=== PATIENT | female | born 1940 | race Caucasian/White ===

== ENCOUNTER → 2016-08-31 | Day surgery (SDC) | payer MEDICARE ==
[~2016-08-31] MED LIST: ASPI81CH CHEW; ASPI81TA82 PO; BIOT10004 PO; BIOT1SUB PO; CEPH-460 PO; COZA50TA PO; ENOX40P SQ; HYDR12.56 PO; LACTATED RINGER'S 1000 ML INJ 1,000 ML ONE; LIDOCAINE 1%/EPINEPHrine 1:100,000 SOLN 20 ML VIAL ONE; LIDOCAINE 1%/EPINEPHrine 1:100,000 SOLN 50 ML VIAL ONE; LOSA50TA PO; ONDANSETRON HCL 4 MG/2 ML VIAL IV PUSH ONE; OXYC1TAB63 PO; OXYC20 PO; PROPOFOL 100 MG/10 ML INJ IV ONE; ZOFR4TAB PO; ceFAZolin 2 GM PREMIX 50 ML ONE
--- NOTE | 2016-09-01 16:24 | MP ---
cc: BUD MONK M.D. DATE OF SURGERY: 08/31/2016 PREOPERATIVE DIAGNOSIS Right breast TRAM flap reconstruction, flap volume too large and displaced low. POSTOPERATIVE DIAGNOSIS Right breast TRAM flap reconstruction, flap volume too large and displaced low. OPERATION Right breast TRAM flap reshaping and repositioning for breast reconstruction. SURGEON Dr. Monk. ANESTHESIA General INDICATIONS A 76-year-old white female with right side breast mastectomy for cancer and a uni or bipedicle TRAM flap reconstruction by Dr. Jenkins, approximately 15 plus years ago. She currently is having difficulty with the flap. The flap is approximately 150 to 200 cc larger than the left side and also displaced low compared to the left side inframammary fold. The patient wishes to reduce the size of the flap and also to reposition it to match the normal left side. The patient was explained the techniques of the procedure including debulking the volume with liposuction technique, de-epithelializing the skin paddles with the need to be shortened and repositioning the inframammary fold and protecting the muscle based blood supply to the flap. The patient understands the possibility of bleeding, infection, possible necrosis of the flap itself and possible need for future surgeries. She is willing to go ahead with the procedure. The patient was brought to the operating room was given supine position. Anesthesia was started. Prep and drape was done, time-out was called and completed. The patient had been placed in a semi-sitting position for marking the right side, checking the sternal notch to the nipple distance, the clavicle to the nipple distance and the nipple to the inframammary fold distance and midline to the nipple distance on both sides, and then outlining the overall areas of volume access. Altogether the flap needs to be debulked more on the lateral aspect, somewhat on the upper pole and partially through the body of the flap itself. Lidocaine 1% with epi and saline dilute tumescent solution was used. The skin markings were de-epithelialized in approximately three-quarters of an inch strip on the upper surgical scar and approximately 1-1/4 inch widest tapering into the medial and lateral aspect on the lower pole of the flap itself. The afognak skin flap was preserved. Once the de-epithelialized portion was complete, the flap was tumesced with lidocaine with epi and saline solution in select areas and liposuction was carried out with low power liposuction prevent much flap damage. The total volume of fat removed was approximately 125 cc, plus/minus 10 cc. The overall volume of the remaining flap appeared to match well with the left side considering the presence of some tumescent fluid still left behind. The total volume of fluid was 155 cc. The lower de-epithelized portion of the skin was incised through the dermis on the lower border and the flap was approached directly, it was gently lifted off the lower skin and of the chest wall from lateral to medial watching for the muscle pedicle. The muscle pedicle was identified and preserved. It is atrophic significantly but it is still visible and identifiable. A new inframammary fold position was outlined with marking pen and taking a three-point sutures including some periosteum on the ribcage the de-epithelialized portion of the flap lower border and the patient's own skin was tacked into the new position, creating a sharp inframammary fold from medial to lateral aspect. The upper de-epithelialized skin was sutured upon itself to shorten the vertical upper pole distance. It is not necessary to adjust the medial distance from the sternal midline only a slight oblique suturing of the upper and lower de-epithelialized pedicle was adequate to shift the nipple to a desired position. The final liposuction was completed with the new breast mound and all the areas were cleaned, dried and sterile dressing was applied. signed, not fully reviewed The skin had been closed with subcuticular running Prolene sutures. The patient remained stable. Intraoperative blood loss less than 5-10 cc. No complications. MD YEIMI Cat/ISAAC /4:45 PM /3:55 PM TIFFANIE
== END | disposition home or self-care (01) ==
LOC: ESDC 08:37
PROVIDERS: ATTEND Plastic Surgery
DX: Z42.1 Encounter for breast reconstruction following mastectomy (principal); Z85.3 Personal history of malignant neoplasm of breast; Z90.11 Acquired absence of right breast and nipple
CPT/HCPCS: 00402; 19380; J0690; J2405; J3010; J7120

== ENCOUNTER 2016-09-13 18:10 | Emergency (ER) | payer MEDICARE ==
[~2016-09-13] VITALS: Ht 167.6 cm; Wt 99.0 kg
[~2016-09-13 18:10] MED LIST changes: -ASPI81CH CHEW; -BIOT1SUB PO; -CEPH-460 PO; -LACTATED RINGER'S 1000 ML INJ 1,000 ML ONE; -LIDOCAINE 1%/EPINEPHrine 1:100,000 SOLN 20 ML VIAL ONE; -LIDOCAINE 1%/EPINEPHrine 1:100,000 SOLN 50 ML VIAL ONE; -LOSA50TA PO; -ONDANSETRON HCL 4 MG/2 ML VIAL IV PUSH ONE; -OXYC1TAB63 PO; -PROPOFOL 100 MG/10 ML INJ IV ONE; -ZOFR4TAB PO; -ceFAZolin 2 GM PREMIX 50 ML ONE
[2016-09-13 18:16] VITALS: BP 144/74; PULSE 80; RESP 18; TEMP 100.1; O2SAT 94
[2016-09-13] MEDS ORDERED: SODIUM CHLORIDE 0.9% FLUSH 10 ML FLUSH IV FLUSH PRN (18:30)
[2016-09-13 18:38] VITALS: BP 162/61; PULSE 81; RESP 20; O2SAT 94
[2016-09-13 18:47] VITALS: O2SAT 94
[2016-09-13] MEDS ORDERED: BIOT1SUB PO (18:51)
[2016-09-13] MEDS ORDERED: ASPI81CH CHEW (18:51)
[2016-09-13] MEDS ORDERED: HYDR12.56 PO (18:51)
[2016-09-13] MEDS ORDERED: LOSA50TA PO (18:51)
[2016-09-13 19:19] LABS: AUTOMATED NEUTROPHIL # 11.5 TH/MM3 (1.8-7.7); BASOPHIL # 0.4 TH/MM3 (0-0.2); BASOPHIL % 2.9 % (0.0-2.0); EOSINOPHIL # 0.1 TH/MM3 (0-0.4); EOSINOPHIL % 0.4 % (0.0-4.0); HEMATOCRIT 40.8 % (35.0-46.0); HEMO FLAGS DIFF FINAL; LYMPH % 7.4 % (9.0-44.0); MEAN CELL VOLUME 88.5 FL (80.0-100.0); MEAN CORPUSCULAR HEMOGLOBIN 29.6 PG (27.0-34.0); MEAN CORPUSCULAR HGB CONC 33.4 % (32.0-36.0); MONO % 8.1 % (0.0-8.0); NEUT % 81.2 % (16.0-70.0); PLATELET COUNT 138 TH/MM3 (150-450); RED BLOOD COUNT 4.61 MIL/MM3 (4.00-5.30); RED CELL DISTRIBUTION WIDTH 12.8 % (11.6-17.2); WHITE BLOOD COUNT 14.1 TH/MM3 (4.0-11.0)
[2016-09-13 19:30] VITALS: BP 123/59; PULSE 77; RESP 20; O2SAT 96
[2016-09-13 19:32] LABS: CHLORIDE 103 MEQ/L (98-107); POTASSIUM 3.4 MEQ/L (3.5-5.1); SODIUM (NA) 140 MEQ/L (136-145)
[2016-09-13 19:34] LABS: BLOOD, URINE SMALL (NEG); GLUCOSE,URINE 100 mg/dL (NEG); KETONE, URINE 40 mg/dL (NEG); NITRITE,URINE POS (NEG)
[2016-09-13 19:35] LABS: ANION GAP 10 MEQ/L (5-15); BICARBONATE 27.4 MEQ/L (21.0-32.0); BLOOD UREA NITROGEN 17 MG/DL (7-18)
[2016-09-13 19:38] LABS: ALT (GPT) 39 U/L (10-53); AST (GOT) 30 U/L (15-37); GLOMERULAR FILTRATION RATE 80 ML/MIN (>89)
[2016-09-13 19:38] LABS: BACTERIA, URINE MOD /hpf; RBC, URINE 0-3 /hpf (0-3); SQUAMOUS EPITHELIAL CELL URINE 0-5 /hpf (0-5); URINE COLOR YELLOW (YELLW/STRAW)
[2016-09-13 19:39] LABS: COMMENT (UR) CULTURE INDICATED; CULTURE IF INDICATED CULTURE INDICATED
[2016-09-13 19:40] LABS: TOTAL BILIRUBIN ADULT 1.4 MG/DL (0.2-1.0)
[2016-09-13 19:41] LABS: ALKALINE PHOSPHATASE 102 U/L (45-117)
[2016-09-13] MEDS ORDERED: cefTRIAXone INJ 1,000 MG in SODIUM CHLORIDE 0.9% INJ 100 ML IV ONE (20:30)
[2016-09-13] MEDS ORDERED: IOHEXOL 350 MG/ML 10 ML VIAL (for RAD DIAG) IV ONE (20:33)
--- NOTE | 2016-09-13 20:38 | PD ---
HPI . Right lower quadrant pain Chief Complaint: Abdominal Pain Time Seen by Provider: 18:29 Travel History International Travel<30 days: No Contact w/Intl Traveler<30days: No Traveled to known affect area: No History of Present Illness HPI Patient presents with right lower quadrant pain which started today. She reports vomiting for 2 days prior to the onset of the abdominal pain. She reports decreased appetite. She denies fever. She denies urinary tract symptoms. She denies cough or difficulty breathing. She reports previous hysterectomy. She has not had a cholecystectomy or appendectomy. [id number]: Right lower quadrant DURATION: Less than 12 hours TIMING: Continuous CONTEXT: Started after 2 days of vomiting ASSOCIATED SYMPTOMS: Anorexia PFSH Past Medical History Arthritis: Yes Cancer: Yes (RIGHT BREAST) Cardiovascular Problems: Yes Chemotherapy: No Diminished Hearing: No Endocrine: No Glaucoma: No Genitourinary: No Hepatitis: No Hiatal Hernia: No Hypertension: Yes Immune Disorder: No Implanted Vascular Access Dvce: Yes Musculoskeletal: Yes Neurologic: No Psychiatric: No Reproductive: No Respiratory: No Radiation Therapy: No Thyroid Disease: No Past Surgical History Eye Surgery: Yes (RIGHT CATARACT EXTRACT.) Gynecologic Surgery: Yes (HYSTERECTOMY) Hysterectomy: Yes Joint Replacement: Yes (LEFT KNEE) Oral Surgery: Yes (T&A-CHILDHOOD) Pacemaker: No Thoracic Surgery: Yes (RIGHT MASTECTOMY WITH RECONSTRUCTION) Tonsillectomy: Yes Other Surgery: Yes Social History Alcohol Use: Yes (RARELY) Tobacco Use: No Substance Use: No Allergies-Medications (Allergen,Severity, Reaction): Coded Allergies: No Known Allergies (Verified , 09/13/16) Reported Meds & Prescriptions Reported Meds & Active Scripts Active Reported Hydrochlorothiazide 12.5 Mg Tab 12.5 Mg PO DAILY Losartan (Losartan Potassium) 50 Mg Tab 50 Mg PO BID Biotin 5,000 Mcg Subl 1,000 Mcg PO DAILY Aspirin 81 Mg Chew 81 Mg CHEW DAILY Review of Systems Except as stated in HPI: all other systems reviewed are Neg General / Constitutional: No: Fever, Chills Respiratory: No: Cough, Shortness of Breath Gastrointestinal: Positive: Nausea, Vomiting, Abdominal Pain, Loss of Appetite , No: Diarrhea Genitourinary: No: Urgency, Frequency, Dysuria Physical Exam Narrative GENERAL: Awake and alert and in no acute distress. SKIN: Warm and dry. HEAD: Atraumatic. Normocephalic. EYES: Pupils equal and round. Extraocular movements are intact. ENT: No nasal bleeding or discharge. Mucous membranes pink and moist. NECK: Trachea midline. Neck is supple. CARDIOVASCULAR: Regular rate and rhythm. Heart sounds are normal. RESPIRATORY: No accessory muscle use. Lungs are clear with full air movement throughout. GASTROINTESTINAL: Abdomen soft, non-tender, nondistended. I was not able to elicit any tenderness to palpation. Bowel sounds are present. MUSCULOSKELETAL: No obvious deformities. No edema. NEUROLOGICAL: Awake and alert. No obvious cranial nerve deficits. Motor grossly within normal limits. Normal speech. PSYCHIATRIC: Appropriate mood and affect; insight and judgment normal. Data Data Last Documented VS Vital Signs Date Time Temp Pulse Resp B/P Pulse Ox O2 Delivery O2 Flow Rate FiO2 09/13/16 18:47 94 09/13/16 18:38 81 20 162/61 Room Air 09/13/16 18:16 100.1 Orders Complete Blood Count With Diff (09/13/16 18:29) Comprehensive Metabolic Panel (09/13/16 18:29) Urinalysis - C+S If Indicated (09/13/16 18:29) Iv Access Insert/Monitor (09/13/16 18:29) Ecg Monitoring (09/13/16 18:29) Oximetry (09/13/16 18:29) Sodium Chloride 0.9% Flush (Ns Flush) (09/13/16 18:30) Electrocardiogram (09/13/16 18:29) Ct Abd/Pel W Iv Contrast(Rout) (09/13/16 18:54) Urine Culture (09/13/16 19:08) Ceftriaxone Inj (Rocephin Inj) (09/13/16 20:30) Iohexol 350 Inj (Omnipaque 350 Inj) (09/13/16 20:33) Labs Laboratory Tests Test 09/13/16 09/13/16 19:05 19:08 White Blood Count 14.1 TH/MM3 Red Blood Count 4.61 MIL/MM3 Hemoglobin 13.6 GM/DL Hematocrit 40.8 % Mean Corpuscular Volume 88.5 FL Mean Corpuscular Hemoglobin 29.6 PG Mean Corpuscular Hemoglobin 33.4 % Concent Red Cell Distribution Width 12.8 % Platelet Count 138 TH/MM3 Mean Platelet Volume 10.8 FL Neutrophils (%) (Auto) 81.2 % Lymphocytes (%) (Auto) 7.4 % Monocytes (%) (Auto) 8.1 % Eosinophils (%) (Auto) 0.4 % Basophils (%) (Auto) 2.9 % Neutrophils # (Auto) 11.5 TH/MM3 Lymphocytes # (Auto) 1.0 TH/MM3 Monocytes # (Auto) 1.1 TH/MM3 Eosinophils # (Auto) 0.1 TH/MM3 Basophils # (Auto) 0.4 TH/MM3 CBC Comment DIFF FINAL Differential Comment Sodium Level 140 MEQ/L Potassium Level 3.4 MEQ/L Chloride Level 103 MEQ/L Carbon Dioxide Level 27.4 MEQ/L Anion Gap 10 MEQ/L Blood Urea Nitrogen 17 MG/DL Creatinine 0.71 MG/DL Estimat Glomerular Filtration 80 ML/MIN Rate Random Glucose 110 MG/DL Calcium Level 8.9 MG/DL Total Bilirubin 1.4 MG/DL Aspartate Amino Transf 30 U/L (AST/SGOT) Alanine Aminotransferase 39 U/L (ALT/SGPT) Alkaline Phosphatase 102 U/L Total Protein 6.9 GM/DL Albumin 3.1 GM/DL Urine Color YELLOW Urine Turbidity CLOUDY Urine pH 6.0 Urine Specific [place] 1.026 Urine Protein 100 mg/dL Urine Glucose (UA) 100 mg/dL Urine Ketones 40 mg/dL Urine Occult Blood SMALL Urine Nitrite POS Urine Bilirubin MOD Urine Leukocyte Esterase SMALL Urine RBC 0-3 /hpf Urine WBC 3-5 /hpf Urine Squamous Epithelial 0-5 /hpf Cells Urine Bacteria MOD /hpf Microscopic Urinalysis Comment CULTURE INDICATED MDM Medical Decision Making Medical Screen Exam Complete: Yes Emergency Medical Condition: Yes Interpretation(s) EKG shows a normal sinus rhythm with no ST segment elevation or depression Differential Diagnosis Differential diagnosis of abdominal pain includes but is not limited to gastritis, pancreatitis, hepatitis, gastroenteritis, gallbladder disease, constipation, urinary retention, UTI, peptic ulcer disease, diverticulitis or appendicitis Narrative Course Patient presents for evaluation of right lower quadrant abdominal pain. She has a benign exam. CBC & BMP Diagram 09/13/16 19:05 UA is positive for UTI. Rocephin has been ordered. Last Impressions Abdomen/Pelvis CT 09/13/16 [id number] Signed Impressions: Service Date/Time: Tuesday, September 13, 2016 20:15 - CONCLUSION: Cholelithiasis and findings are characteristic of cholecystitis may be acute and/or chronic. Uzair Bazzi MD Her physical exam is not consistent with acute cholecystitis. Diagnosis Primary Impression: Right lower quadrant abdominal pain Additional Impression: Urinary tract infection Qualified Code: N30.00 - Acute cystitis without hematuria Patient Instructions: Gallstones (DC), General Instructions, Urinary Tract Infection in Women (DC) Additional Instructions: Follow-up with her primary care provider for further evaluation of your gallbladder. Med/Other Pt SpecificInfo: Prescription(s) given Scripts Ondansetron (Zofran)4 Mg Tab4 Mg PO Q6HR PRN (NAUSEA OR VOMITING) #10 TAB Ref 0 Prov:Jaida Guaman MD 09/13/16 Cephalexin (Keflex)500 Mg [id number] Mg PO Q8H #21 CAP Ref 0 Prov:Jaida Guaman MD 09/13/16 Disposition: 01 DISCHARGE HOME Condition: Stable Jaida Guaman MD Sep 13, 2016 20:38
--- NOTE | 2016-09-13 20:46 | RADHPO ---
EXAM DATE/TIME: 09/13/2016 20:15 [facility] COMPARISON: No previous studies available for comparison. INDICATIONS : Upper right abdomen pain. IV CONTRAST: 92 cc Omnipaque 350 (iohexol) IV ORAL CONTRAST: No oral contrast ingested. RADIATION DOSE: 20.85 CTDIvol (mGy) MEDICAL HISTORY : Cardiovascular disease. SURGICAL HISTORY : None. ENCOUNTER: Initial ACUITY: 1 day PAIN SCALE: 4/10 LOCATION: Right Abodmen TECHNIQUE: Volumetric scanning of the abdomen and pelvis was performed. Using automated exposure control and adjustment of the mA and/or kV according to patient size, radiation dose was kept as low as reasonably achievable to obtain optimal diagnostic quality images. FINDINGS: CT Abdomen: The liver, spleen, pancreas, kidneys, adrenals are unremarkable. There is no evidence for any appreciable pathological adenopathy, free fluid, or bowel obstruction. Slight bibasilar atelect asis and/or infiltrate is seen. The gallbladder is distended measuring almost 13 cm in size multiple stones within it, thickening of the gallbladder wall and haziness to surrounding fat planes character istic of cholecystitis may be acute and or chronic. Small hiatal hernia is seen. There is a small 1 c m upper abdominal anterior wall fat hernia without evidence for bowel herniation. CT pelvis: There is no evidence for mass, abscess formation, or any significant adenopathy within the pelvis. CONCLUSION: Cholelithiasis and findings are characteristic of cholecystitis may be acute and/or c hronic. Uzair Bazzi MD on September 13, 2016 at 20:40 Board Certified Radiologist. This report was verified electronically.
[2016-09-13] MEDS ORDERED: ZOFR4TAB PO (21:18)
[2016-09-13] MEDS ORDERED: CEPH-460 PO (21:18)
[2016-09-13 21:58] VITALS: BP_SYST 140; BP_SYST 151; BP_DIAS 63; BP_DIAS 64
--- NOTE | 2016-09-14 10:44 | EKG ---
Date Performed: 09/13/2016 Time Performed: 18:37:52 PTAGE: 76 years EKG: Sinus rhythm with PVC(s). rSr'(V1) - probable normal variant Inferior infarct - age undetermined Abnormal ECG Com pared to prior tracing no significant change PREVIOUS TRACING : 04/21/2012 09.48 DOCTOR: Sandrita Buck Interpretating Date/Time 09/14/2016 10:36:53
== END 2016-09-13 22:03 | disposition home or self-care (01) ==
LOC: PHED 18:10
DX: N30.00 Acute cystitis without hematuria (principal); K80.20 Calculus of gallbladder without cholecystitis without obstruction; M19.90 Unspecified osteoarthritis, unspecified site; I10 Essential (primary) hypertension; R94.31 Abnormal electrocardiogram [ECG] [EKG]; Z79.82 Long term (current) use of aspirin; Z79.899 Other long term (current) drug therapy; Z85.3 Personal history of malignant neoplasm of breast; Z90.710 Acquired absence of both cervix and uterus
CPT/HCPCS: 74177; 80053; 81001; 85025; 87086; 93005; 96365; J0696; Q9967

== ENCOUNTER 2016-09-14 16:27 | Inpatient (IN) | payer MEDICARE ==
[~2016-09-14] VITALS: Ht 167.6 cm; Wt 99.0 kg
[~2016-09-14 16:27] MED LIST changes: +ASPI81CH CHEW; -ASPI81TA82 PO; -BIOT10004 PO; +BIOT1SUB PO; +CEPH-460 PO; -COZA50TA PO; -ENOX40P SQ; +LOSA50TA PO; -OXYC20 PO; +ZOFR4TAB PO
[2016-09-14 16:33] VITALS: BP 144/78; PULSE 89; RESP 16; TEMP 99; O2SAT 92
[2016-09-14] MEDS ORDERED: SODIUM CHLOR 0.9% 1000 ML INJ 1,000 ML IV SCH (17:07)
[2016-09-14] MEDS ORDERED: HYDROmorphone HCL PF 2 MG/ML VIAL IVS ONE (17:15)
[2016-09-14] MEDS ORDERED: SODIUM CHLORIDE 0.9% FLUSH 10 ML FLUSH IV FLUSH PRN ×2 (17:15→18:00)
[2016-09-14] MEDS ORDERED: ONDANSETRON HCL 4 MG/2 ML VIAL IVP ONE (17:15)
--- NOTE | 2016-09-14 17:17 | PD ---
HPI Chief Complaint: Abdominal Pain Time Seen by Provider: 16:51 Travel History International Travel<30 days: No Contact w/Intl Traveler<30days: No Traveled to known affect area: No History of Present Illness HPI This 76-year-old female is complaining of abdominal pain. She says that Tuesday night she had a lot of vomiting. Tuesday morning she started having pain in her abdomen. She points to the right lower quadrant at the site of the pain. Pain has been fairly persistent. She has had a loss of appetite. She has not eaten she says since Tuesday. It is now Tuesday. She was seen in the emergency department yesterday. At that time her temperature 100.1. She had a CT scan of the abdomen done which showed cholelithiasis and question of chronic or acute cholecystitis. Her white count at that time was 14,000. Her bilirubin was 1.4. She was diagnosed with urinary tract infection and released on Keflex. She continues to have quite severe pain which is fairly constant. The pain does not radiate. She has not been able to eat. She has a history of mastectomy 18 years ago and has had reconstructive surgery. She had a slight flap taken from her stomach for that surgery. She has not had intra-abdominal surgery that she is aware of COUNT INCLUDES THE [facility] Past Medical History Arthritis: Yes Cancer: Yes (RIGHT BREAST) Cardiovascular Problems: Yes Chemotherapy: No Diminished Hearing: No Endocrine: No Glaucoma: No Genitourinary: No Hepatitis: No Hiatal Hernia: No Hypertension: Yes Immune Disorder: No Implanted Vascular Access Dvce: Yes Musculoskeletal: Yes Neurologic: No Psychiatric: No Reproductive: No Respiratory: No Radiation Therapy: No Thyroid Disease: No Tetanus Vaccination: < 5 Years Influenza Vaccination: Yes ?: Not Past Surgical History Eye Surgery: Yes (RIGHT CATARACT EXTRACT.) Gynecologic Surgery: Yes (HYSTERECTOMY) Hysterectomy: Yes Joint Replacement: Yes (LEFT KNEE) Oral Surgery: Yes (T&A-CHILDHOOD) Pacemaker: No Thoracic Surgery: Yes (RIGHT MASTECTOMY WITH RECONSTRUCTION) Tonsillectomy: Yes Other Surgery: Yes Social History Alcohol Use: Yes (RARELY) Tobacco Use: No Substance Use: No Allergies-Medications (Allergen,Severity, Reaction): Coded Allergies: No Known Allergies (Verified , 09/14/16) Reported Meds & Prescriptions Reported Meds & Active Scripts Active Zofran (Ondansetron HCl) 4 Mg Tab 4 Mg PO Q6HR PRN Keflex (Cephalexin) 500 Mg Cap 500 Mg PO Q8H Reported Hydrochlorothiazide 12.5 Mg Tab 12.5 Mg PO DAILY Losartan (Losartan Potassium) 50 Mg Tab 50 Mg PO BID Biotin 5,000 Mcg Subl 1,000 Mcg PO DAILY Aspirin 81 Mg Chew 81 Mg CHEW DAILY Review of Systems General / Constitutional: No: Fever, Chills Eyes: No: Diploplia, Blurred Vision HENT: No: Vertigo, Lightheadedness Cardiovascular: No: Chest Pain or Discomfort Respiratory: No: Cough Gastrointestinal: Positive: Nausea, Vomiting, Abdominal Pain, Loss of Appetite Genitourinary: No: Frequency Musculoskeletal: No: Myalgias, Arthralgias Skin: No Rash Neurologic: No: Weakness, Dizziness Endocrine: No: Heat Intolerance, Cold Intolerance Hematologic/Lymphatic: No: Easy Bruising Physical Exam Narrative GENERAL: Well-developed female SKIN: Focused skin assessment warm/dry. HEAD: Atraumatic. Normocephalic. EYES: Pupils equal and round. No scleral icterus. No injection or drainage. ENT: No nasal bleeding or discharge. Mucous membranes pink and moist. NECK: Trachea midline. No JVD. CARDIOVASCULAR: Regular rate and rhythm. No murmur appreciated. RESPIRATORY: No accessory muscle use. Clear to auscultation. Breath sounds equal bilaterally. GASTROINTESTINAL: Abdomen soft, there is right upper quadrant tenderness with local guarding. Hepatic and splenic margins not palpable. MUSCULOSKELETAL: No obvious deformities. No clubbing. No cyanosis. No edema. NEUROLOGICAL: Awake and alert. No obvious cranial nerve deficits. Motor grossly within normal limits. Normal speech. PSYCHIATRIC: Appropriate mood and affect; insight and judgment normal. Data Data Last Documented VS Vital Signs Date Time Temp Pulse Resp B/P Pulse Ox O2 Delivery O2 Flow Rate FiO2 09/14/16 16:33 99.0 89 16 144/78 92 Orders Complete Blood Count With Diff (09/14/16 17:07) Comprehensive Metabolic Panel (09/14/16 17:07) Lipase (09/14/16 17:07) Prothrombin Time / Inr (Pt) (09/14/16 17:07) Act Partial Throm Time (Ptt) (09/14/16 17:07) Urinalysis - C+S If Indicated (09/14/16 17:07) Us Abdomen Gallbladder (09/14/16 ) Iv Access Insert/Monitor (09/14/16 17:07) Ecg Monitoring (09/14/16 17:07) Oximetry (09/14/16 17:07) Hydromorphone Pf Inj (Dilaudid Pf Inj) (09/14/16 17:15) Ondansetron Inj (Zofran Inj) (09/14/16 17:15) Sodium Chlor 0.9% 1000 Ml Inj (Ns 1000 M (09/14/16 17:07) Sodium Chloride 0.9% Flush (Ns Flush) (09/14/16 17:15) Electrocardiogram (09/14/16 17:17) Chest, Single Ap (09/14/16 17:17) Piperacil-Tazo 4.5 Gm Premix (Zosyn 4.5 (09/14/16 17:30) Place In Observation (09/14/16 ) Vital Signs (Adult) Q4H (09/14/16 17:54) Activity Oob Ad Connie (09/14/16 17:54) Intake + Output MEERA.QSHIFT (09/14/16 17:54) Diet Npo (09/14/16 Dinner) Sodium Chlor 0.9% 1000 Ml Inj (Ns 1000 M (09/14/16 17:54) Sodium Chloride 0.9% Flush (Ns Flush) (09/14/16 18:00) Sodium Chloride 0.9% Flush (Ns Flush) (09/14/16 21:00) Ondansetron Inj (Zofran Inj) (09/14/16 18:00) Diphenhydramine (Benadryl) (09/14/16 18:00) Hydromorphone Pf Inj (Dilaudid Pf Inj) (09/14/16 18:00) Admit Order (Ed Use Only) (09/14/16 17:57) Piperacil-Tazo 4.5 Gm Premix (Zosyn 4.5 (09/15/16 00:00) Labs Laboratory Tests Test 09/14/16 09/14/16 17:15 17:20 Urine Color ONOFRE Urine Turbidity CLEAR Urine pH 6.0 Urine Specific [place] GREATER THAN 1.035 Urine Protein 300 OR GREATER mg/dL Urine Glucose (UA) NEG mg/dL Urine Ketones 15 mg/dL Urine Occult Blood TRACE Urine Nitrite NEG Urine Bilirubin NEG Urine Leukocyte Esterase NEG Urine RBC 0-3 /hpf Urine WBC 6-8 /hpf Urine Squamous Epithelial 6-8 /hpf Cells Urine Bacteria FEW /hpf Urine Mucus FEW /lpf Microscopic Urinalysis Comment CULT NOT INDICATED White Blood Count 16.1 TH/MM3 Red Blood Count 4.97 MIL/MM3 Hemoglobin 14.6 GM/DL Hematocrit 44.3 % Mean Corpuscular Volume 89.2 FL Mean Corpuscular Hemoglobin 29.3 PG Mean Corpuscular Hemoglobin 32.8 % Concent Red Cell Distribution Width 13.1 % Platelet Count 132 TH/MM3 Mean Platelet Volume 10.2 FL Neutrophils (%) (Auto) 86.7 % Lymphocytes (%) (Auto) 5.9 % Monocytes (%) (Auto) 6.9 % Eosinophils (%) (Auto) 0.3 % Basophils (%) (Auto) 0.2 % Neutrophils # (Auto) 14.0 TH/MM3 Lymphocytes # (Auto) 1.0 TH/MM3 Monocytes # (Auto) 1.1 TH/MM3 Eosinophils # (Auto) 0.0 TH/MM3 Basophils # (Auto) 0.0 TH/MM3 CBC Comment DIFF FINAL Differential Comment Prothrombin Time 10.9 SEC Prothromb Time International 1.0 RATIO Ratio Activated Partial 30.6 SEC Thromboplast Time Sodium Level 139 MEQ/L Potassium Level 3.2 MEQ/L Chloride Level 102 MEQ/L Carbon Dioxide Level 28.3 MEQ/L Anion Gap 9 MEQ/L Blood Urea Nitrogen 15 MG/DL Creatinine 0.82 MG/DL Estimat Glomerular Filtration 68 ML/MIN Rate Random Glucose 120 MG/DL Calcium Level 9.5 MG/DL Total Bilirubin 1.2 MG/DL Aspartate Amino Transf 26 U/L (AST/SGOT) Alanine Aminotransferase 39 U/L (ALT/SGPT) Alkaline Phosphatase 147 U/L Total Protein 7.5 GM/DL Albumin 3.1 GM/DL Lipase 84 U/L [facility] Medical Decision Making Medical Screen Exam Complete: Yes Emergency Medical Condition: Yes Medical Record Reviewed: Yes Differential Diagnosis Differential includes cholecystitis,: Cholelithiasis, gastroenteritis Narrative Course White count today is 16,000 compared to 14,000. She has persistent right upper quadrant tenderness. Her CT yesterday was suggestive of cholecystitis. Case discussed with Dr. Rodriguez and she will be admitted Diagnosis Primary Impression: Acute calculous cholecystitis Admitting Information Admitting Physician Requests: Admit Alfredo Luna MD Sep 14, 2016 17:17
[2016-09-14] MEDS ORDERED: PIPERACIL-TAZO 4.5 GM PREMIX 100 ML IV ONE (17:30)
[2016-09-14 17:44] LABS: BLOOD, URINE TRACE (NEG); GLUCOSE,URINE NEG (NEG); KETONE, URINE 15 mg/dL (NEG); NITRITE,URINE NEG (NEG)
[2016-09-14 17:44] LABS: CHLORIDE 102 MEQ/L (98-107); POTASSIUM 3.2 MEQ/L (3.5-5.1); SODIUM (NA) 139 MEQ/L (136-145)
[2016-09-14 17:48] LABS: ANION GAP 9 MEQ/L (5-15); BICARBONATE 28.3 MEQ/L (21.0-32.0); BLOOD UREA NITROGEN 15 MG/DL (7-18)
[2016-09-14 17:49] LABS: APTT (PATIENT) 30.6 SEC (24.3-30.1); PROTHROMBIN TIME - PATIENT 10.9 SEC (9.8-11.6)
--- NOTE | 2016-09-14 17:50 | RADHPO ---
EXAM DATE/TIME: 09/14/2016 17:19 [facility] COMPARISON: CT ABDOMEN & PELVIS W CONTRAST, September 13, 2016, 20:15. INDICATIONS : Fever. No chest complaints. MEDICAL HISTORY : None. SURGICAL HISTORY : None. ENCOUNTER: Initial ACUITY: 3 days PAIN SCORE: 0/10 LOCATION: Bilateral chest FINDINGS: The cardiac silhouette is enlarged in transverse diameter. There is subsegmental atelectasis in the both bases. No pleural effusions are identified. Upper lung zones are clear. CONCLUSION: Cardiomegaly. Bibasilar atelectasis left greater than right Bogdan Reyna MD on September 14, 2016 at 17:48 Board Certified Radiologist. This report was verified electronically.
[2016-09-14 17:51] LABS: ALT (GPT) 39 U/L (10-53); AST (GOT) 26 U/L (15-37); GLOMERULAR FILTRATION RATE 68 ML/MIN (>89)
[2016-09-14 17:52] LABS: TOTAL BILIRUBIN ADULT 1.2 MG/DL (0.2-1.0)
[2016-09-14 17:53] LABS: URINE COLOR AMBER (YELLW/STRAW)
[2016-09-14 17:54] LABS: ALKALINE PHOSPHATASE 147 U/L (45-117)
[2016-09-14] MEDS: SODIUM CHLOR 0.9% 1000 ML INJ 1,000 ML IV SCH (17:54)
[2016-09-14 17:56] LABS: MUCUS URINE FEW /lpf (OCC); RBC, URINE 0-3 /hpf (0-3)
[2016-09-14 17:57] LABS: BACTERIA, URINE FEW /hpf; COMMENT (UR) CULT NOT INDICATED; CULTURE IF INDICATED CULT NOT INDICATED
[2016-09-14] MEDS ORDERED: ONDANSETRON HCL 4 MG/2 ML VIAL IV PRN (18:00)
[2016-09-14] MEDS ORDERED: diphenhydrAMINE HCL 25 MG CAP PO PRN (18:00)
--- NOTE | 2016-09-14 18:12 | RADHPO ---
EXAM DATE/TIME: 09/14/2016 17:49 [facility] COMPARISON: No previous studies available for comparison. INDICATIONS : Right upper quadrant pain. MEDICAL HISTORY : Hypertension. Arthritis. Right breast cancer. SURGICAL HISTORY : Tonsillectomy. Mastectomy, right. Total knee replacement, left. Right breast reconstruction. ENCOUNTER: Initial ACUITY: 3 days PAIN SCORE: 5/10 LOCATION: Right upper quadrant MEASUREMENTS: LIVER: 14.2 cm length COMMON DUCT: 6 mm RIGHT KIDNEY: 11.0 x 4.4 x 5.4 cm FINDINGS: LIVER: Normal echotexture without focal lesion or ductal dilatation. Hepatopedal flow is seen in the portal vein. COMMON DUCT: No intraluminal mass or stone visualized. GALLBLADDER: There are multiple echogenic and shadowing stones which measure up to 2.5 cm in the region of the nec k and an aggregate of echogenic stones in the fundus measuring up to 5.8 cm. No gallbladder wall thi ckening. No pericholecystic fluid. Negative sonographic Cabrera's sign. PANCREAS: Not well seen RIGHT KIDNEY: No evidence of hydronephrosis, stone, or mass. CONCLUSION: Multiple shadowing gallstones with normal dimension common hepatic duct. Kenneth Oglesby MD on September 14, 2016 at 18:09 Board Certified Radiologist. This report was verified electronically.
[2016-09-14 18:14] LABS: BASOPHIL % 0.2 % (0.0-2.0); EOSINOPHIL % 0.3 % (0.0-4.0); HEMATOCRIT 44.3 % (35.0-46.0); LYMPH % 5.9 % (9.0-44.0); MEAN CELL VOLUME 89.2 FL (80.0-100.0); MEAN CORPUSCULAR HEMOGLOBIN 29.3 PG (27.0-34.0); MEAN CORPUSCULAR HGB CONC 32.8 % (32.0-36.0); MONO % 6.9 % (0.0-8.0); NEUT % 86.7 % (16.0-70.0); PLATELET COUNT 132 TH/MM3 (150-450); RED BLOOD COUNT 4.97 MIL/MM3 (4.00-5.30); RED CELL DISTRIBUTION WIDTH 13.1 % (11.6-17.2); WHITE BLOOD COUNT 16.1 TH/MM3 (4.0-11.0)
[2016-09-14 18:15] VITALS: BP 158/72; PULSE 74; RESP 18; O2SAT 94
[2016-09-14 18:16] VITALS: RESP 18; O2SAT 94
[2016-09-14 18:20] LABS: HEMO FLAGS DIFF FINAL
[2016-09-14] MEDS: HYDROmorphone HCL PF 1 MG/ML VIAL IV PUSH PRN ×2 (20:16→22:28)
[2016-09-14] MEDS: SODIUM CHLORIDE 0.9% FLUSH 10 ML FLUSH IV FLUSH SCH (20:16)
[2016-09-14 20:21] VITALS: BP 138/62; PULSE 60; RESP 18; TEMP 98.8; O2SAT 97
[2016-09-14] MEDS: PIPERACIL-TAZO 4.5 GM PREMIX 100 ML IV SCH (23:46)
[2016-09-15 00:12] VITALS: BP 129/61; PULSE 75; RESP 18; TEMP 99.4; O2SAT 93
[2016-09-15] MEDS: HYDROmorphone HCL PF 1 MG/ML VIAL IV PUSH PRN ×3 (04:17→09:38)
[2016-09-15] MEDS: SODIUM CHLOR 0.9% 1000 ML INJ 1,000 ML IV SCH ×3 (04:17→16:30)
[2016-09-15] MEDS: PIPERACIL-TAZO 4.5 GM PREMIX 100 ML IV SCH ×4 (04:18→23:49)
[2016-09-15 08:00] VITALS: BP 132/63; PULSE 75; RESP 17; TEMP 98.8; O2SAT 91
--- NOTE | 2016-09-15 08:42 | HHI.HP ---
[facility] Service General Surgery Primary Care Physician Andrés Mercado MD Admission Diagnosis ACUTE CHOLECYSTITIS Chief Complaint: Abdominal pain History of Present Illness This is a 76-year-old female who began to have abdominal pain suddenly on Tuesday associated with multiple episodes of emesis. It was primarily right sided. She had a small meal on Tuesday night. She denies nausea or diarrhea currently after the emesis resolved. She presented to the emergency department on Tuesday night and was evaluated and noted to have leukocytosis and concern for acute versus chronic cholecystitis on CT abdomen and pelvis. She had a somewhat abnormal UA and was discharged home with a diagnosis of urinary tract infection. She presented again to the hospital yesterday with persistent severe right sided abdominal pain. She had persistent leukocytosis and mild elevation of bilirubin and alkaline phosphatase. Gallbladder ultrasound showed gallstones but no wall thickening. Due to persistent pain and leukocytosis she was admitted to my service for likely cholecystitis. The only abdominal surgery the patient has undergone is TRAM reconstructive flap. About 2 weeks ago she had revision of her right breast reconstruction by Dr. Monk. Review of Systems Constitutional: DENIES: Fever, Chills Eyes: DENIES: Eye inflammation, Eye pain Respiratory: DENIES: Cough, Shortness of breath Cardiovascular: DENIES: Chest pain, Palpitations Gastrointestinal: COMPLAINS OF: Abdominal pain Integumentary: DENIES: Pruritus, Rash Neurologic: DENIES: Localized weakness, Paresthesias Past Family Social History Past Medical History Hypertension Breast cancer Past Surgical History Right breast mastectomy with TRAM flap Reported Medications Reported Meds & Active Scripts Active Zofran (Ondansetron HCl) 4 Mg Tab 4 Mg PO Q6HR PRN Keflex (Cephalexin) 500 Mg Cap 500 Mg PO Q8H Reported Hydrochlorothiazide 12.5 Mg Tab 12.5 Mg PO DAILY Losartan (Losartan Potassium) 50 Mg Tab 50 Mg PO BID Biotin 5,000 Mcg Subl 1,000 Mcg PO DAILY Aspirin 81 Mg Chew 81 Mg CHEW DAILY Allergies: Coded Allergies: No Known Allergies (Verified , 09/14/16) Active Ordered Medications Current Medications Medications (Trade) Dose Ordered Sig/Laverne Route Start Time Stop Time Status Last Admin (NS 1000 ml Inj) 1,000 ml @ 125 mls/hr Q8H IV 09/14/16 17:54 09/15/16 04:17 (NS Flush) 2 ml UNSCH PRN IV FLUSH 09/14/16 18:00 Sodium Chloride 2 ml 2 ml BID IV FLUSH 09/14/16 21:00 09/14/16 20:16 (Zosyn 4.5 Gm Premix) 100 ml @ 200 mls/hr Q6HR IV 09/15/16 00:00 09/15/16 04:18 (Zofran Inj) 4 mg Q6H PRN IV 09/14/16 18:00 (Benadryl) 25 mg Q6H PRN PO 09/14/16 18:00 (Dilaudid Pf Inj) 0.5 mg Q2H PRN IV PUSH 09/14/16 18:00 09/15/16 06:51 Family History Noncontributory Social History Rare alcohol use. No tobacco or drug use. Physical Exam Vital Signs Vital Signs Date Time Temp Pulse Resp B/P Pulse Ox O2 Delivery O2 Flow Rate FiO2 09/15/16 00:12 99.4 75 18 129/61 93 09/14/16 20:21 98.8 60 18 138/62 97 09/14/16 18:16 18 94 Room Air 09/14/16 18:15 74 18 158/72 94 Room Air 09/14/16 18:00 18 09/14/16 16:33 99.0 89 16 144/78 92 Physical Exam GENERAL: Awake and alert. No acute distress. Cooperative. Obese. HEAD: Normocephalic. Atraumatic. EYES: Pupils equal round and reactive to light bilaterally. No scleral icterus. CHEST: Lungs clear to auscultation bilaterally with no wheezing or rhonchi. No respiratory distress. CARDIOVASCULAR: Regular rate and rhythm. ABDOMEN: Well-healed incisions from TRAM flap. Severe right sided tenderness to palpation worst in the right upper quadrant. Moderate epigastric tenderness. EXTREMITIES: No cyanosis or edema. SKIN: Warm, dry, nonjaundiced. Laboratory Laboratory Tests Test 09/14/16 09/14/16 17:15 17:20 Urine Color ONOFRE Urine Turbidity CLEAR Urine pH 6.0 Urine Specific [place] GREATER THAN 1.035 Urine Protein 300 OR GREATER Urine Glucose (UA) NEG Urine Ketones 15 Urine Occult Blood TRACE Urine Nitrite NEG Urine Bilirubin NEG Urine Leukocyte Esterase NEG Urine RBC 0-3 Urine WBC 6-8 Urine Squamous Epithelial 6-8 Cells Urine Bacteria FEW Urine Mucus FEW Microscopic Urinalysis Comment CULT NOT INDICATED White Blood Count 16.1 Red Blood Count 4.97 Hemoglobin 14.6 Hematocrit 44.3 Mean Corpuscular Volume 89.2 Mean Corpuscular Hemoglobin 29.3 Mean Corpuscular Hemoglobin 32.8 Concent Red Cell Distribution Width 13.1 Platelet Count 132 Mean Platelet Volume 10.2 Neutrophils (%) (Auto) 86.7 Lymphocytes (%) (Auto) 5.9 Monocytes (%) (Auto) 6.9 Eosinophils (%) (Auto) 0.3 Basophils (%) (Auto) 0.2 Neutrophils # (Auto) 14.0 Lymphocytes # (Auto) 1.0 Monocytes # (Auto) 1.1 Eosinophils # (Auto) 0.0 Basophils # (Auto) 0.0 CBC Comment DIFF FINAL Differential Comment Prothrombin Time 10.9 Prothromb Time International 1.0 Ratio Activated Partial 30.6 Thromboplast Time Sodium Level 139 Potassium Level 3.2 Chloride Level 102 Carbon Dioxide Level 28.3 Anion Gap 9 Blood Urea Nitrogen 15 Creatinine 0.82 Estimat Glomerular Filtration 68 Rate Random Glucose 120 Calcium Level 9.5 Total Bilirubin 1.2 Aspartate Amino Transf 26 (AST/SGOT) Alanine Aminotransferase 39 (ALT/SGPT) Alkaline Phosphatase 147 Total Protein 7.5 Albumin 3.1 Lipase 84 Result Diagram: 09/14/16 1720 09/14/16 1720 Imaging Last Impressions Chest X-Ray 09/14/16 1717 Signed Impressions: Service Date/Time: Wednesday, September 14, 2016 17:19 - CONCLUSION: Cardiomegaly. Bibasilar atelectasis left greater than right Bogdan Reyna MD Gall Bladder Ultrasound 09/14/16 0000 Signed Impressions: Service Date/Time: Wednesday, September 14, 2016 17:49 - CONCLUSION: Multiple shadowing gallstones with normal dimension common hepatic duct. Kenneth Oglesby MD Assessment and Plan Assessment and Plan 76-year-old female with a evaluation consistent with acute cholecystitis. Plan to proceed to the operating room today for laparoscopic, possible open, cholecystectomy. I discussed details of the procedure as well as risks including but not limited to common bile duct injury with the patient. Tulio Rodriguez MD Sep 15, 2016 08:41
[2016-09-15] MEDS: SODIUM CHLORIDE 0.9% FLUSH 10 ML FLUSH IV FLUSH SCH ×2 (09:00→21:29)
[2016-09-15] MEDS: POTASSIUM CHLOR 20 MEQ PREMIX 100 ML IV SCH ×2 (09:33→16:55)
[2016-09-15 12:00] VITALS: BP 137/63; PULSE 71; RESP 17; TEMP 98.5; O2SAT 92
[2016-09-15] MEDS ORDERED: NEOSTIGMINE 3 MG/3 ML SYR IV ONE (12:00)
[2016-09-15] MEDS ORDERED: ONDANSETRON HCL 4 MG/2 ML VIAL IV PUSH ONE (12:00)
[2016-09-15] MEDS ORDERED: PROPOFOL 200 MG/20 ML AMP IV ONE (12:00)
[2016-09-15] MEDS ORDERED: ACETAMINOPHEN 1000 MG/100 ML VIAL IV ONE (13:20)
[2016-09-15] MEDS ORDERED: fentaNYL CITRATE 250 MCG/5 ML AMP ONE (13:20)
[2016-09-15] MEDS ORDERED: APREPITANT 40 MG CAP ONE (13:20)
[2016-09-15] MEDS ORDERED: FAMOTIDINE 20 MG/2 ML VIAL ONE (13:20)
[2016-09-15] MEDS ORDERED: DEXAMETHASONE SOD PHOS 4 MG/ML VIAL ONE (13:20)
[2016-09-15] MEDS ORDERED: MIDAZOLAM HCL 2 MG/2 ML VIAL ONE (13:20)
[2016-09-15] MEDS ORDERED: BUPIVACAINE/EPINEPHRINE 0.25% 50 ML VIAL INFIL ONE (13:55)
[2016-09-15] MEDS ORDERED: oxyCODONE/ACETAMINOPHEN 5 MG/325 MG TAB PO PRN (15:15)
--- NOTE | 2016-09-15 15:22 | PD.OP ---
cc: Tulio Rodriguez MD Operative Report Date of Surgery: Sep 15, 2016 Preoperative Diagnosis: (1) Acute calculous cholecystitis Postoperative Diagnosis: (1) Gangrenous cholecystitis (2) Acute calculous cholecystitis Procedure: Laparoscopic cholecystectomy Anesthesia: GETA Surgeon: Tulio Rodriguez Writing Manager(s): Dougie FALCON Operation and Findings: Complications: None apparent EBL: 30 cc Operative findings: The patient had a hugely dilated gallbladder full of large stones. It was partially gangrenous. There were omental adhesions and inflammation surrounding it. Procedure in detail: The patient was taken to the operating room and placed in the supine position. General endotracheal anesthesia was induced. The abdomen was prepped and draped in usual sterile fashion and a surgical timeout was performed to verify correct patient procedure and site. Appropriate perioperative antibiotics were administered. Local anesthetic was injected in the skin and subcutaneous tissue superior to the umbilicus and a 5 mm incision performed. The abdomen was entered using the Optiview 5 mm trocar with direct laparoscopic visualization. The abdomen was then insufflated to 15 mmHg with CO2 gas which the patient tolerated well. Next a 12 mm port was placed in the epigastrium and two 5 mm ports in the right upper quadrant and right lateral abdomen. The patient was placed in reverse Trendelenburg position and turned slightly to the left. Attention was turned to the right upper quadrant. The gallbladder was covered with omentum due to surrounding inflammation. The omentum was taken down bluntly. The gallbladder had a small hole in it leaking bile and this was suctioned and the gallbladder was emptied of bile. There were many large stones in the gallbladder. The wall was very thickened and partially gangrenous. The dome of the gallbladder was grasped and retracted cephalad. The infundibulum was retracted laterally to expose Calot's triangle. The infundibulum of the gallbladder required careful extensive dissection using hook electrocautery and blunt dissection with the suction lever operator. Blunt dissection and judicious use of electrocautery was used to expose the cystic duct directly entering the gallbladder. Two clips were placed proximally and one distally and it was transected. The cystic artery had been divided with electrocautery and there was no bleeding. One small posterior branch was clipped proximally and divided distally. The gallbladder was then removed from the liver bed using electrocautery. Hemostasis was achieved. The gallbladder was then removed from the abdomen using an Endo Catch bag. The epigastric fascial incision was opened probably 3 more centimeters to allow the gallbladder to be removed as it was very large and filled with large stones. It was partially removed in pieces until the bag and entire gallbladder was able to be removed. The clips were in place on the cystic duct and cystic artery stumps with no bleeding or bile leakage. The right upper quadrant was copiously irrigated. At this point , the abdomen was allowed to desufflate and trochars were removed. The fascia at the 12 mm port site was closed with multiple simple interrupted 0 Vicryl sutures. Skin was closed with subcuticular 4-0 Monocryl as well as Dermabond. The patient tolerated the procedure well and was extubated and taken to PACU in stable condition. All sponge and instrument counts were correct. Tulio Rodriguez MD Sep 15, 2016 15:22
[2016-09-15 16:00] VITALS: BP 159/69; PULSE 66; RESP 17; TEMP 97.9; O2SAT 95
[2016-09-15] MEDS ORDERED: DO NOT ADM ANY ANTICOAGULANT DRUGS PRN ×2 (16:00)
[2016-09-15 20:00] VITALS: BP 157/67; PULSE 72; RESP 18; TEMP 97.5; O2SAT 97
[2016-09-15 20:52] VITALS: O2SAT 97
[2016-09-15] MEDS: oxyCODONE/ACETAMINOPHEN 5 MG/325 MG TAB PO PRN (21:30)
[2016-09-15] MEDS: LOSARTAN 50 MG TAB PO SCH (21:30)
[2016-09-16 00:04] VITALS: BP 134/58; PULSE 60; RESP 18; TEMP 97.5; O2SAT 94
[2016-09-16] MEDS: SODIUM CHLOR 0.9% 1000 ML INJ 1,000 ML IV SCH (01:54)
[2016-09-16] MEDS: PIPERACIL-TAZO 4.5 GM PREMIX 100 ML IV SCH ×2 (05:54→11:03)
[2016-09-16] MEDS: oxyCODONE/ACETAMINOPHEN 5 MG/325 MG TAB PO PRN (05:58)
[2016-09-16 08:00] VITALS: BP 148/108; PULSE 62; RESP 17; TEMP 97.3; O2SAT 93
[2016-09-16] MEDS ORDERED: OXYC1TAB63 PO (08:55)
[2016-09-16] MEDS ORDERED: ASPIRIN 81 MG CHEW TAB CHEW SCH (09:00)
[2016-09-16] MEDS ORDERED: HYDROCHLOROTHIAZIDE 12.5 MG CAP PO SCH (09:00)
[2016-09-16 10:53] VITALS: O2SAT 95
[2016-09-16] MEDS: LOSARTAN 50 MG TAB PO SCH (10:58)
[2016-09-16] MEDS: SODIUM CHLORIDE 0.9% FLUSH 10 ML FLUSH IV FLUSH SCH (10:58)
[2016-09-16 11:20] LABS: INDIRECT BILIRUBIN 0.6 MG/DL (0.0-0.8); TOTAL BILIRUBIN ADULT 0.9 MG/DL (0.2-1.0)
[2016-09-16 12:00] VITALS: BP 144/85; PULSE 64; RESP 18; TEMP 97; O2SAT 94
--- NOTE | 2016-09-16 12:19 | HHI.PR ---
Subjective Subjective Notes She feels well. Tolerated small meal last night. Minimal pain. States her urine is very dark. Objective Vitals/I&O Vital Signs Date Time Temp Pulse Resp B/P Pulse Ox O2 Delivery O2 Flow Rate FiO2 09/16/16 10:53 95 Nasal Cannula 2.00 09/16/16 08:00 97.3 62 17 148/108 Labs Laboratory Tests Test 09/16/16 10:55 Total Bilirubin 0.9 Direct Bilirubin 0.3 Indirect Bilirubin 0.6 Aspartate Amino Transf 61 (AST/SGOT) Alanine Aminotransferase 99 (ALT/SGPT) Alkaline Phosphatase 263 Total Protein 6.5 Albumin 2.5 Radiology Last Impressions Chest X-Ray 09/14/16 1717 Signed Impressions: Service Date/Time: Wednesday, September 14, 2016 17:19 - CONCLUSION: Cardiomegaly. Bibasilar atelectasis left greater than right Bogdan Reyna MD Gall Bladder Ultrasound 09/14/16 0000 Signed Impressions: Service Date/Time: Wednesday, September 14, 2016 17:49 - CONCLUSION: Multiple shadowing gallstones with normal dimension common hepatic duct. Kenneth Oglesby MD Narrative Exam NAD nonlabored breathing Abd: soft, min post op ttp, inc c/d/i A/P Assessment and Plan 76 yo F POD 1 s/p lap kierra for acute cholecystitis. Urine dark and I checked LFTS. Bili has decreased. Others likely elevated secondary to the operation. D/c home. Stable. Low fat diet. Activity- ok to shower. No heavy lifting. F/ u two weeks. Rx for percocet. Tulio Rodriguez MD Sep 16, 2016 12:19
== END 2016-09-16 13:37 | disposition home or self-care (01) | DRG 418 ==
LOC: PHEFT 16:27 → PHEDA 17:58 → N07B 19:52
PROVIDERS: ADMIT Surgery; ATTEND Surgery
PROC: 0FT44ZZ Resection of Gallbladder, Percutaneous Endoscopic Approach (ICD-10-PCS; principal; 2016-09-15 13:32)
DX: K80.12 Calculus of gallbladder with acute and chronic cholecystitis without obstruction (principal); N39.0 Urinary tract infection, site not specified; Z85.3 Personal history of malignant neoplasm of breast; Z90.11 Acquired absence of right breast and nipple; Z79.82 Long term (current) use of aspirin
CPT/HCPCS: 71010; 74177; 76705; 80053; 80076; 81001; 83690; 85025; 85610; 85730; 87086; 88304; 93005; 96365; 96375; J0131; J0696; J1100; J1170; J2250; J2405; J2543; J2710; J3010; J3480; J7030; J8501; Q9967